=== PATIENT | female | born 1980 | race Caucasian/White ===

== ENCOUNTER 2018-01-15 00:32 | Emergency (ER) | payer OTHER ==
[2018-01-15] MEDS ORDERED: Mag-Al 1200 mg/1200 mg/30 ML UDCUP ONE (00:44)
[2018-01-15] MEDS ORDERED: Lidocaine Viscous Sol 2% 15 ml UD Cup ONE (00:44)
[2018-01-15 00:58] LABS: #Basophils 0.1 thou/uL (0.0-0.2); #Eosinphils 0.2 thou/uL (0.0-0.7); #Lymphocytes 2.2 thou/uL (1.20-3.40); #Monocytes 0.3 thou/uL (0.11-0.59); #Neutrophils 3.3 thou/uL (1.40-6.50); %Basophils 1.3 % (0.0-1.0); %Eosinophils 3.2 % (0.0-10.0); %Lymphocytes 36.2 % (21.0-51.0); %Monocytes 4.8 % (0.0-10.0); %Neutrophils 54.5 % (42.0-75.0); Hemoglobin 14.2 g/dL (12.0-16.0); Mean Corpuscular HGB CONC 34.5 g/dL (32.0-36.0); Mean Corpuscular Hemoglobin 31.4 pg (27.0-31.0); Mean Platelet Volume 6.6 fL (7.4-10.4); Platelet Count 291 thou/uL (130-400); RBC Distribution Width 11.5 % (11.5-14.5); Red Blood Cell (RBC) Count 4.52 mill/uL (4.20-5.40); White Blood Cell (WBC) Count 6.1 thou/uL (4.8-10.8)
[2018-01-15 01:24] LABS: BHCG - Serum Negative (NEGATIVE); Pregs Control Background? CLEAR/WHITE (CLR/WHITE); Pregs Control Bar Appear? YES (CONTROL BAR)
[2018-01-15 01:26] LABS: ALT (SGPT) 15 U/L (8-55); AST (SGOT) 28 U/L (5-34); Alkaline Phosphatase 77 U/L (40-150); Anion Gap 15 mmol/L (10-20); BUN (Urea Nitrogen) 8 mg/dL (7.0-18.7); Bilirubin, Total 0.4 mg/dL (0.2-1.2); CK (CPK) 63 U/L (29-168); Calc. Creatinine Clearance 0 mL/min (70-130); Calcium 9.8 mg/dL (7.8-10.44); Carbon Dioxide 27 mmol/L (22-29); Chloride 102 mmol/L (98-107); Estimated GFR-MDRD Greater than 90; Globulin 3.6 g/dL (2.4-3.5); Glucose 74 mg/dL (70-105); Lipase 38 U/L (8-78); Potassium 3.5 mmol/L (3.5-5.1); Protein, Total 8.6 g/dL (6.0-8.3); Sodium 140 mmol/L (136-145)
[2018-01-15] MEDS ORDERED: Ondansetron ODT 8 MG TAB ONE (01:27)
[2018-01-15 01:29] LABS: CKMB 0.9 ng/mL (0-6.6); Troponin I Less than 0.010 ng/mL (< 0.028)
[2018-01-15] MEDS ORDERED: Sucralfate 1 GM/10 ML UDCUP ONE (01:46)
[2018-01-15] MEDS ORDERED: Famotidine 20 MG TAB ONE (02:16)
--- NOTE | 2018-01-15 08:00 | RAD ---
UPRIGHT PORTABLE CHEST 1 VIEW: HISTORY: A 37-year-old female with a history of chest pain. COMPARISON: 10/30/16. FINDINGS: Monitor leads overlie the chest. Bronchovascular markings are somewhat diffusely increased bilateral ly without confluent pneumonia, overt edema, or pleural effusion. There may be some component of cristela y mild vascular congestion. IMPRESSION: Probable mild vascular congestion. No confluent pneumonia, pleural effusion, or other acute intratho racic disease. POS: [facility]
== END 2018-01-15 02:41 | disposition home or self-care (01) ==
LOC: ERS 00:32
DX: R10.13 Epigastric pain (principal); E11.9 Type 2 diabetes mellitus without complications; I10 Essential (primary) hypertension; F32.9 Major depressive disorder, single episode, unspecified; Z79.899 Other long term (current) drug therapy; Z87.891 Personal history of nicotine dependence
CPT/HCPCS: 36415; 71045; 80053; 82553; 83690; 84484; 84703; 85025; 93005; 96374; 96376; J2270

== ENCOUNTER 2020-04-04 06:05 | Day surgery (SDC) | payer OTHER ==
[2020-03-30 10:59] VITALS: BMI 29.2
--- NOTE | 2020-04-03 08:37 | HP ---
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 There has been no injury. Her mass has gradually increased in size. This is causing pain and interfering with day-to-day activities with working and using her hand. PAST MEDICAL HISTORY: The patient has history of hypertension and diabetes. 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 CURRENT MEDICATIONS: 1. Metformin. 2. Vitamins. 3. Valtrex. 4. Omeprazole. 5. Lexapro. ALLERGIES: SHE IS ALLERGIC TO ADHESIVE. FAMILY HISTORY: Otherwise unremarkable. SOCIAL HISTORY: Otherwise unremarkable. REVIEW OF SYSTEMS: Otherwise unremarkable. PHYSICAL EXAMINATION: GENERAL: Healthy female. HEENT: Unremarkable. NECK: Supple. CHEST: Clear. HEART: Regular rate and rhythm. ABDOMEN: Soft, nontender. PELVIC: Deferred. RECTAL: Deferred. BREASTS: Deferred. EXTREMITIES: Pertinent findings of the left wrist. There is a 1 x 1 cm mass over the distal volar wrist which is tender. There is full range of motion. Neurovascular exam is intact. Balance testing reveals good collateral flow. DIAGNOSTIC STUDIES: X-rays of the left wrist are normal. IMPRESSION: Ganglion, left wrist. PLAN: Surgical excision. The nature of surgery, length of recovery, and potential complications such as infection, loss of motion, neurovascular injury, recurrence and need for additional treatment or repeat surgery have been discussed in detail. Job ID: [id number]
[2020-04-04] MEDS ORDERED: Fentanyl 100 MCG/2 ML VIAL ONE (06:27)
[2020-04-04] MEDS ORDERED: Bupivacaine PF 0.5% 30 ML VIAL ONE (06:39)
[2020-04-04] MEDS ORDERED: Midazolam HCl 5 mg/5 ml Vial ONE (07:08)
[2020-04-04] MEDS ORDERED: Propofol 1,000 MG/100 ML VIAL IV ONE (07:09)
[2020-04-04] MEDS ORDERED: Lidocaine 1% (PF) 30 ML VIAL ONE (07:46)
--- NOTE | 2020-04-04 14:01 | OP ---
DATE OF PROCEDURE: 04/04/2020 ANESTHESIA: Local plus TIVA. PREOPERATIVE DIAGNOSIS: Volar carpal ganglion, left wrist. POSTOPERATIVE DIAGNOSIS: Volar carpal ganglion, left wrist. PROCEDURE PERFORMED: Excision of volar carpal ganglion, left wrist. DESCRIPTION OF PROCEDURE: After satisfactory anesthesia was induced in supine position, field block was accomplished with 1% lidocaine 5 mL. The left arm was elevated and the tourniquet inflated to 250 mmHg. A transverse incision was made in the distal wrist flexion crease over the palpable mass, carried down through the subcutaneous tissues. Bleeding points were controlled with Bovie cautery. Using sharp and blunt dissection, the mass was excised in its entirety along with the wound over the volar wrist capsule and the specimen sent to Pathology. Care was taken to avoid injury to the radial artery. The tourniquet was then released after 12 minutes. There was no excessive bleeding. The wound was thoroughly irrigated. An additional 5 mL of 1% lidocaine was injected about the incision site. The skin was then closed with a running subcuticular 3-0 nylon. A sterile bulky compressive dressing was applied. The patient immobilized in a volar plaster splint. She was then awakened and taken from the operating room in stable condition. There were no apparent intraoperative complications. The estimated blood losswas negligible. The patient will be discharged home in satisfactory condition, instructed on ice and elevation, and given written cast care instructions. She has prescription for [place] 5 at home for pain. She will be rechecked in my office in approximately 8 days or sooner if there are any problems prior to that time. Job ID: [id number]
== END 2020-04-04 09:05 | disposition home or self-care (01) ==
LOC: SDC 06:05
PROVIDERS: ATTEND Orthopaedic Surgery
PROC: 0LB60ZZ Excision of Left Lower Arm and Wrist Tendon, Open Approach (ICD-10-PCS; principal; 2020-04-04)
DX: M67.432 Ganglion, left wrist (principal); I10 Essential (primary) hypertension; E11.9 Type 2 diabetes mellitus without complications; Z79.84 Long term (current) use of oral hypoglycemic drugs; Z79.899 Other long term (current) drug therapy; Z91.048 Other nonmedicinal substance allergy status
CPT/HCPCS: 36416; 88304; J0690; J2001; J2250; J2704; J3010; S0020